=== PATIENT | male | born 2000 | race Hispanic/Latino ===

== ENCOUNTER 2021-02-15 19:25 | Emergency (ER) | payer SELFPAY ==
[2021-02-15] MEDS ORDERED: ONDANSETRON 4 MG/2 ML INJ IV ONE (22:27)
[2021-02-15] MEDS ORDERED: fentaNYL 100 MCG/2 ML INJ IV ONE (22:27)
[2021-02-15] MEDS ORDERED: SODIUM CHLORIDE 0.9% 1000 ML 1,000 ML IV ONE ×2 (22:27→22:28)
--- NOTE | 2021-02-15 22:32 | Emergency Department Report ---
HPI - General Chief Complaint: Chest Pain Time Seen by Provider: 02/15/21 21:56 - HPI HPI: Room 30 The patient is a 21-year-old male present with a chief complaint of chest pain. The patient states for the past 2 weeks he has had a constant right-sided chest pain has been sharp in nature. Patient denies shortness of breath cough or fever but admits to pleurisy. Patient denies any recent flights/long car trips. Patient also admits to an episode of nausea and vomiting x1 and 2 episodes of diarrhea. Patient admits to consuming heavy alcohol daily stop drinking yesterday. The patient states he has been vaccinated against Covid receiving his second dose of the Moderna vaccine "a couple of months ago." ED Past Medical Hx - Past Medical History Hx Asthma: Yes Additional medical history: ADHD, bipolar, anxiety, depression, chronic back pain - Surgical History Past Surgical History?: No Additional Surgical History: T & A - Family History Family history: no significant - Social History Smoking Status: Current Every Day Smoker (1 pack/day) Substance Use Type: Alcohol (Nightly, last drink yesterday), Marijuana - Medications Home Medications: Home Medications Medication Instructions Recorded Confirmed Last Taken Type traMADoL [Ultram] 50 mg PO Q6HR PRN #14 tablet 02/16/21 Unknown Rx ED Review of Systems ROS: Stated complaint: CHEST PAINS/ SHAKING/ VOMITING Other details as noted in HPI Constitutional: denies: fever Eyes: denies: eye pain ENT: denies: throat pain Respiratory: denies: cough, shortness of breath Cardiovascular: chest pain Endocrine: no symptoms reported Gastrointestinal: abdominal pain, nausea, vomiting, diarrhea Genitourinary: denies: dysuria Musculoskeletal: denies: back pain Neurological: denies: headache Physical Exam - Physical Exam Vital Signs: Vital Signs 02/15/21 19:47 Temperature 97.9 F Pulse Rate 104 H Respiratory 17 Rate Blood Pressure 94/49 O2 Sat by Pulse 97 Oximetry Physical Exam: GENERAL: The patient is well-developed well-nourished male lying in chair not appearing to be in acute distress HEENT: Normocephalic. Atraumatic. Extraocular motions are intact. Patient has moist mucous membranes. NECK: Supple. Trachea midline CHEST/LUNGS: Clear to auscultation. There is no respiratory distress noted. HEART/CARDIOVASCULAR: Regular. There is no tachycardia. There is no gallop rub or murmur. ABDOMEN: Abdomen is soft, with diffuse discomfort to palpation. Patient has normal bowel sounds. There is no abdominal distention. SKIN: There is no rash. There is no edema. There is no diaphoresis. NEURO: The patient is awake, alert, and oriented. The patient is cooperative. The patient has no focal neurologic deficits. The patient has normal speech. GCS 15 MUSCULOSKELETAL: There is no evidence of acute injury. ED Course Vital Signs 02/15/21 19:47 Temperature 97.9 F Pulse Rate 104 H Respiratory 17 Rate Blood Pressure 94/49 O2 Sat by Pulse 97 Oximetry ED Medical Decision Making - Lab Data Result diagrams: 02/15/21 22:45 02/15/21 22:45 Laboratory Tests 02/15/21 02/15/21 02/15/21 22:45 22:45 22:45 WBC 10.0 RBC 5.86 H Hgb 18.2 H Hct 49.6 H MCV 85 MCH 31 MCHC 37 H RDW 13.1 L Plt Count 241 Lymph % (Auto) 26.9 Stearns % (Auto) 6.7 Eos % (Auto) 2.1 Baso % (Auto) 0.4 Lymph # (Auto) 2.7 Stearns # (Auto) 0.7 Eos # (Auto) 0.2 Baso # (Auto) 0.0 Seg Neutrophils % 63.9 Seg Neutrophils # 6.4 D-Dimer < 135.00 Sodium 138 Potassium 4.2 Chloride 100.1 Carbon Dioxide 24 Anion Gap 18 BUN 13 Creatinine 0.9 Estimated GFR > 60 BUN/Creatinine Ratio 14 Glucose 91 Calcium 9.9 Total Bilirubin 0.90 AST 17 ALT 21 Alkaline Phosphatase 64 Total Creatine Kinase 88 CK-MB (CK-2) 1.1 CK-MB (CK-2) Rel Index 1.2 Troponin T < 0.010 Total Protein 6.9 Albumin 4.6 Albumin/Globulin Ratio 2.0 Lipase 22 Urine Bilirubin Urine RBC (Auto) 02/16/21 01:39 WBC RBC Hgb Hct MCV MCH MCHC RDW Plt Count Lymph % (Auto) Stearns % (Auto) Eos % (Auto) Baso % (Auto) Lymph # (Auto) Stearns # (Auto) Eos # (Auto) Baso # (Auto) Seg Neutrophils % Seg Neutrophils # D-Dimer Sodium Potassium Chloride Carbon Dioxide Anion Gap BUN Creatinine Estimated GFR BUN/Creatinine Ratio Glucose Calcium Total Bilirubin AST ALT Alkaline Phosphatase Total Creatine Kinase CK-MB (CK-2) CK-MB (CK-2) Rel Index Troponin T Total Protein Albumin Albumin/Globulin Ratio Lipase Urine Bilirubin Neg Urine RBC (Auto) 1.0 Laboratory Tests 02/15/21 02/15/21 02/15/21 22:45 22:45 22:45 WBC 10.0 RBC 5.86 H Hgb 18.2 H Hct 49.6 H MCV 85 MCH 31 MCHC 37 H RDW 13.1 L Plt Count 241 Lymph % (Auto) 26.9 Stearns % (Auto) 6.7 Eos % (Auto) 2.1 Baso % (Auto) 0.4 Lymph # (Auto) 2.7 Stearns # (Auto) 0.7 Eos # (Auto) 0.2 Baso # (Auto) 0.0 Seg Neutrophils % 63.9 Seg Neutrophils # 6.4 D-Dimer < 135.00 Sodium 138 Potassium 4.2 Chloride 100.1 Carbon Dioxide 24 Anion Gap 18 BUN 13 Creatinine 0.9 Estimated GFR > 60 BUN/Creatinine Ratio 14 Glucose 91 Calcium 9.9 Total Bilirubin 0.90 AST 17 ALT 21 Alkaline Phosphatase 64 Total Creatine Kinase 88 CK-MB (CK-2) 1.1 CK-MB (CK-2) Rel Index 1.2 Troponin T < 0.010 Total Protein 6.9 Albumin 4.6 Albumin/Globulin Ratio 2.0 Lipase 22 Urine Color Urine Turbidity Urine pH Ur Specific Wil[place] Urine Protein Urine Glucose (UA) Urine Ketones Urine Blood Urine Nitrite Urine Bilirubin Urine Urobilinogen Ur Leukocyte Esterase Urine WBC (Auto) Urine RBC (Auto) 02/16/21 01:39 WBC RBC Hgb Hct MCV MCH MCHC RDW Plt Count Lymph % (Auto) Stearns % (Auto) Eos % (Auto) Baso % (Auto) Lymph # (Auto) Stearns # (Auto) Eos # (Auto) Baso # (Auto) Seg Neutrophils % Seg Neutrophils # D-Dimer Sodium Potassium Chloride Carbon Dioxide Anion Gap BUN Creatinine Estimated GFR BUN/Creatinine Ratio Glucose Calcium Total Bilirubin AST ALT Alkaline Phosphatase Total Creatine Kinase CK-MB (CK-2) CK-MB (CK-2) Rel Index Troponin T Total Protein Albumin Albumin/Globulin Ratio Lipase Urine Color Straw Urine Turbidity Clear Urine pH 6.0 Ur Specific [place] 1.010 Urine Protein <15 mg/dl Urine Glucose (UA) Neg Urine Ketones Neg Urine Blood Sm Urine Nitrite Neg Urine Bilirubin Neg Urine Urobilinogen < 2.0 Ur Leukocyte Esterase Neg Urine WBC (Auto) 0.0 Urine RBC (Auto) 1.0 - EKG Data -: EKG Interpreted by Me EKG shows normal: sinus rhythm Rate: normal - EKG Data When compared to previous EKG there are: previous EKG unavailable Interpretation: no acute changes - Radiology Data Radiology results: report reviewed (Chest x-ray), image reviewed (Chest x-ray) interpreted by me: Chest x-ray-no definite focal infiltrates, no pneumothorax. [facility] [address] [place] [address] XRay Report Signed Patient: LAURY ROLDAN MR#: [id number] : 2000 Acct:[id number] Age/Sex: 21 / M ADM Date: 02/15/21 Loc: ED Attending Dr: Bran joiner Physician: JOSE ROBERTO CORDERO MD Date of Service: 02/15/21 Procedure(s): XR chest routine 2V Accession Number(s): [id number] cc: JOSE ROBERTO CORDERO MD Fluoro Time In Minutes: CHEST 2 VIEWS INDICATION / CLINICAL INFORMATION: chest pain. COMPARISON: None available. FINDINGS: SUPPORT DEVICES: None. HEART / MED IASTINUM: No significant abnormality. LUNGS / PLEURA: No significant pulmonary or pleural abnormality. No pneumothorax. ADDITIONAL FINDINGS: No significant additional findings. IMPRESSION: 1. No acute findings. Signer Name: Reji Vazquez DO Signed: 02/16/2021 12:29 AM Workstation Name: [id number] Transcribed By: NS Dictated By: REJI VAZQUEZ DO Electronically Authenticated By: REJI VAZQUEZ DO Signed Date/Time: 02/16/2128 DD/ TD/TT: Print - Differential Diagnosis Atypical chest pain, GERD, PE, pancreatitis, peptic ulcer disease, ACS, per Critical care attestation.: If time is entered above; I have spent that time in minutes in the direct care of this critically ill patient, excluding procedure time. ED Disposition Clinical Impression: Atypical chest pain Disposition: 01 HOME / SELF CARE / HOMELESS Is pt being admited?: No Does the pt Need Aspirin: No Condition: Stable Instructions: Nonspecific Chest Pain, Adult Additional Instructions: Return to the emergency department should you develop worsening symptoms, inability to tolerate food or liquids, high fever or any other concerns Prescriptions: traMADoL [Ultram] 50 mg PO Q6HR PRN #14 tablet PRN Reason: Pain Referrals: PRIMARY CARE, [Primary Care Provider] - 3-5 Days Time of Disposition: 02:22 Heart Score - HEART Score History: Slightly suspicious EKG: Normal Age: < 45 Risk factors: No known risk factors Troponin: < normal limit HEART Score: 0 - EKG Read Time Time EKG Completed: 02:19 EKG Read Time: 02:20
[2021-02-15 23:20] LABS: Basophils % (Auto) 0.4 % (0.0-1.8); Eosinophils # (Auto) 0.2 K/mm3 (0.0-0.4); Eosinophils % (Auto) 2.1 % (0.0-4.3); Lymphocytes # (Auto) 2.7 K/mm3 (1.2-5.4); Lymphocytes % (Auto) 26.9 % (13.4-35.0); Mean Corpuscular HGB Conc 37 % (32-34); Mean Corpuscular Volume 85 fl (84-94); Monocytes # (Auto) 0.7 K/mm3 (0.0-0.8); Monocytes % (Auto) 6.7 % (0.0-7.3); Platelet Count 241 K/mm3 (140-440); Red Blood Count 5.86 M/mm3 (3.65-5.03); Red Cell Distribution Width 13.1 % (13.2-15.2)
[2021-02-15 23:27] LABS: Hematocrit 49.6 % (35.5-45.6); Hemoglobin 18.2 gm/dl (11.8-15.2)
[2021-02-15 23:35] LABS: Creatine Kinase MB 1.1 ng/mL (0.0-4.0)
[2021-02-15 23:40] LABS: Alanine Aminotransferase 21 units/L (7-56); Albumin 4.6 g/dL (3.9-5); BUN/Creatinine Ratio 14; Blood Urea Nitrogen 13 mg/dL (9-20); Calcium 9.9 mg/dL (8.4-10.2); Hemolysis Index 18
--- NOTE | 2021-02-16 00:33 | XRay Report ---
CHEST 2 VIEWS INDICATION / CLINICAL INFORMATION: chest pain. COMPARISON: None available. FINDINGS: SUPPORT DEVICES: None. HEART / MEDIASTINUM: No significant abnormality. LUNGS / PLEURA: No significant pulmonary or pleural abnormality. No pneumothorax. ADDITIONAL FINDINGS: No significant additional findings. IMPRESSION: 1. No acute findings. Signer Name: Reji Connolly DO Signed: 02/16/2021 12:29 AM Workstation Name: [id number]
[2021-02-16 01:44] VITALS: BP 110/54
[2021-02-16 02:03] LABS: Bilirubin,Urine NEG (Negative); Blood,Urine SM (Negative); Color,Urine Straw (Yellow); Protein,Urine <15 mg/dL mg/dL (Negative); Urobilinogen,Urine < 2.0 mg/dL (<2.0)
--- NOTE | 2021-02-19 11:51 | Electrocardiograph Report ---
[facility] Test Date: 2021-02-16 Test Time: 02:19:13 Pat Name: LAURY ROLDAN Department: Room: Gender: M [employer]: MEIR : 2000 Requested By: JOSE ROBERTO CORDERO Order Number: [id number] Reading MD: Vincent Rendon Measurements Intervals Samson Rate: 76 P: 57 NM: 153 QRS: 34 QRSD: 101 T: 64 QT: 377 QTc: 425 Interpretive Statements Sinus rhythm RSR' IN V1 OR V2, PROBABLY NORMAL VARIANT No previous ECG available for comparison Electronically Signed On 02-19-2021 11:51:35 EDT by Vincent Rendon
== END 2021-02-16 23:59 | disposition home or self-care (01) ==
LOC: ED 19:25
DX: R07.89 Other chest pain (principal); J45.909 Unspecified asthma, uncomplicated; F31.9 Bipolar disorder, unspecified; F41.9 Anxiety disorder, unspecified; G89.29 Other chronic pain; F17.210 Nicotine dependence, cigarettes, uncomplicated; Z72.89 Other problems related to lifestyle; Z88.0 Allergy status to penicillin; Z79.899 Other long term (current) drug therapy
CPT/HCPCS: 36415; 71046; 80053; 81001; 82550; 82553; 83690; 84484; 85025; 85379; 93005; 96361; 96374; 96375; 99284; J2405; J3010; J7030